=== PATIENT | male | born 1955 | race Caucasian/White ===

== ENCOUNTER → 2017-01-24 | Outpatient (CLI) | payer OTHER | END | disposition home or self-care (01) | LOC: PTH.S 12-13 08:00 → RAD.S 12-13 08:15 → PTH.S 12-13 12:30 → RAD.S 07:47 | DX: C18.2 Malignant neoplasm of ascending colon (principal); C18.3 Malignant neoplasm of hepatic flexure; N40.0 Benign prostatic hyperplasia without lower urinary tract symptoms; R91.8 Other nonspecific abnormal finding of lung field; R59.0 Localized enlarged lymph nodes ==